=== PATIENT | male | born 1970 | race Caucasian/White ===

== ENCOUNTER 2017-03-29 13:49 | Inpatient (IN) | payer OTHER ==
[~2017-03-29] VITALS: Ht 180.3 cm; Wt 82.6 kg
--- NOTE | 2017-03-29 14:04 | NUR ---
PT IS A 47 VAHID OLD MALE, PRESENTS TO ED VIA [facility] FROM HOME WITH C/O RIGHT UPPER ABDOMINAL PAIN X6 DAYS THAT HAS BEEN CONSTANT AND NON RADIATING. PT AMA'D FROM [facility] YESTERDAY DUE TO NOT BEING HAPPY WITH CARE PER PT. PT REPORTS N/V/D. PT BREHATING IS EVEN AND UNLABORED, NO S/S OF RESPRAITORY DISTRESS. SPEECH IS CLEAR AND APPROPRIATE. PT A/O X4. PTS SCLERA ON BILATERAL EYES ARE YELLOWISH IN COLOR. PT LUNG SOUNDS ARE CLEAR BILATERALLY. PT HOOKED TO FULL CARDIAC ONITOR. PT AWIAITING MSE.
--- NOTE | 2017-03-29 14:17 | NUR ---
DR JOSE AT BEDSIDE FOR MSE
--- NOTE | 2017-03-29 14:39 | NUR ---
LAB AT BEDSIDE.
--- NOTE | 2017-03-29 14:52 | NUR ---
ULTRASOUND AT BEDSIDE TO COMPLETED ORDERED EXAM
[2017-03-29 15:29] LABS: CALCIUM 8.6 mg/dL (8.5-10.1); CARBON DIOXIDE 24.7 mmol/L (21-32); CHLORIDE SERUM 106 mmol/L (98-107); CREATININE SERUM 0.8 mg/dL (0.7-1.3); GFR1 > 60 mL/min; GLUCOSE SERUM 112 mg/dL (74-106); POTASSIUM SERUM 3.9 mmol/L (3.5-5.1); SODIUM SERUM 139 mmol/L (136-145)
[2017-03-29 15:35] LABS: ALBUMIN 3.2 g/dL (3.4-5.0); ALKALINE PHOSPHATASE 141 U/L (46-116); ALT/SGPT 84 U/L (16-63); AST/SGOT 122 U/L (15-37); BILIRUBIN TOTAL 6.42 mg/dL (0.20-1.00); LIPASE 1005 IU/L (73-393); TOTAL PROTEIN, SERUM 8.4 g/dL (6.4-8.2)
[2017-03-29 15:37] LABS: BASOPHIL % 0.1 % (0-2); PLATELET COUNT 164 x10^3mcL (130-400)
[2017-03-29 15:48] LABS: microscopic required? YES
[2017-03-29 15:52] LABS: urine erythrocyte NEGATIVE (NEGATIVE)
[2017-03-29] MEDS ORDERED: LASIX20 MG PO (16:10)
[2017-03-29] MEDS ORDERED: LORAZEPAM0.5 MG PO (16:11)
[2017-03-29] MEDS ORDERED: COL-RITE100 M2 PO (16:11)
[2017-03-29] MEDS ORDERED: GOOD SENSE OMEP20 MG PO (16:11)
--- NOTE | 2017-03-29 17:18 | NUR ---
REPORT CALLED OT MARIETTA RN, SHE WILL ASSUME CARE PRIMARY RN.
[2017-03-29 17:52] VITALS: BP 113/83
--- NOTE | 2017-03-29 18:03 | NUR ---
RECEIVED PT FROM ED VIA [facility]. ORIENTED PT TO ROOM AND SURROUNDINGS. IV NOTED TO LEFT FOOT PATENT AND INTACT. TELE 5 PLACED ON PT READING NSR. INSTRUCTED PT ON THE USE OF CALL LIGHT FOR ASSISTANCE. ENDORSED PT TO PRIMARY NURSE MARIETTA
--- NOTE | 2017-03-29 19:16 | NUR ---
PT SLEEPING. MORPHINE WAS ADMIN FOR ABD PAIN. NS INFUSING 150 CC HOUR. NPO EXCEPT MEDS FOR PANCREATITIS. TELE # 5 NSR. INDEPENDENT W ADL'S. ABD DISTENED AND ROUND. VSS. CALL LIGHT WITHIN REACH.
--- NOTE | 2017-03-29 19:30 | NUR ---
RECEIVED PATIENT FROM AM YA. PATIENT QUIETLY RESTING IN BED AT THIS TIME. IVF INFUSING TO LEFT FOOT AT 150ML/HR NS. CALL LIGHT WITHIN REACH. TELE 5 SR. CURRENTLY ON 2 LITERS NASAL CANNULA. BREATHING EVEN AND UNLABORED.
[2017-03-29 21:19] VITALS: BP 113/75
--- NOTE | 2017-03-29 22:07 | NUR ---
PATIENT NOTED TO BE AGITATED DUE TO PAIN. STATED THAT MORPHINE DOES NOT HELP WITH HIS PAIN AND REQUESTING FOR DILAUDID FOR PAIN MANAGEMENT. DR. JEROME AWARE AND HAS SPOKEN TO PATIENT REGARDING PAIN MANAGEMENT. AWAITING NEW ORDER.S
[2017-03-29 22:34] LABS: MAGNESIUM 1.5 mg/dL (1.8-2.4); PHOSPHOROUS 3.6 mg/dL (2.5-4.9)
[2017-03-29 22:35] LABS: CHOLESTEROL/HDL RATIO 7.2
--- NOTE | 2017-03-29 22:39 | NUR ---
PATIENT REFUSED LACTULOSE REGARDLESS OF EDUCATION OF RISKS AND BENEFITS GIVEN.
[2017-03-29 22:47] LABS: FREE T4 1.76 ng/dL (0.76-1.46); FREE THYROXINE INDEX 3.1 ug/dL (1.4-4.5); T4(THYROXINE) 7.3 ug/dL (4.7-13.3)
--- NOTE | 2017-03-30 02:25 | NUR ---
PATIENT C/O PAIN 04/09 TO ABD. ADMINISTERED PAIN MEDICATION.
[2017-03-30 05:59] VITALS: BP 107/75
--- NOTE | 2017-03-30 06:28 | NUR ---
PATIENT REQUESTING FOR ADDITIONAL OR HIGHER DOSE OF PAIN MEDICATION AND STATES THAT THE CURRENT DOSE OF PAIN MEDICATION DOES NOT RELIEVE HIS PAIN MUCH HE WOULD HOPE. WILL ENDORSE REQUEST TO AM RN. CALL LIGHT WITHIN REACH. IVF CONTINUE TO INFUSE TO LEFT FOOT AT 250ML/HR, NO INFILTRATION NOTED.
[2017-03-30 07:08] LABS: BASOPHIL % 0.6 % (0-2); PLATELET COUNT 132 x10^3mcL (130-400)
--- NOTE | 2017-03-30 07:20 | NUR ---
DROWSY AND ORIENTED. NPO FOR PANCREATITIS AND POSS SURG CONSULT. BREATHING FREELY ON RA. NS INFUSING 250 CC HOUR TO LEFT FOOT. TELE # 5 NSR. INTERMITTENT SHARP/THROBBING PAIN TO RIGHT SIDE ABD. RECEIVED DILAUDID 1 MG 0618 THIS AM. HELPFUL ALTHOUGH PT IS WANTING STRONGER DOSAGE. VSS. INDEPENDENT W ADL'S. JAUNDICED SCLERA, ABD DISTENDED AND FIRM. HYPOACTIVE BOWEL SOUNDS. SAID HE HAD BM YESTERDAY WHAT WAS PARTIALY FORMED AND PARTIALLY WATER. CALL LIGHT WITHIN REACH.
[2017-03-30 07:23] LABS: RED CELL DISTRIBUTION WIDTH 14.6 % (11.5-14.5)
[2017-03-30 07:24] LABS: rbc morphology (normal/abnorm) ABNORMAL (NORMAL)
[2017-03-30 08:34] LABS: T3 TOTAL 0.87 ng/mL
[2017-03-30 09:25] VITALS: BP 121/81
[2017-03-30 09:38] LABS: AMPHETAMINE QUAL UR NONE DETECTED (NEG <=1000)
--- NOTE | 2017-03-30 13:55 | NUR ---
PT LEFT FOR CT ABD.
[2017-03-30 14:24] VITALS: BP 124/82
[2017-03-30 17:35] VITALS: BP 114/72
--- NOTE | 2017-03-30 18:48 | NUR ---
DROWSY AND ORIENTED. MEDICATED FOR ABD PAIN. CONTINUES TO BE NPO OR PANCREATITIS. SEEN BY DR. MOORE AND DR. Nat BRITO. NOT A GOOD SURGICAL CANDIDATE AT THIS TIME. MIGHT CONSIDER ERCP IF NECCESSARY PER Og BRITO. CONTINUES ON ROCEPHIN IV ABX. LR INFUSING [address] Lavelle BRITO REDUCED DOSAGE OF DILAUDID AND INCREASED TIME FROM Q 3 HOURS TO 6 HOURS PRN. PT IS NOT HAPPY ABOUT THAT. FEDER[place] # [phone]. HIDA SCAN ORDERED FOR TOMORROW. CT ABD PERFORMED TODAY.
--- NOTE | 2017-03-30 19:14 | NUR ---
REC'D PT FROM DAY NURSE. ALERT AND DROWSY. DENIES PAIN AT THIS TIME. NO ACUTE DISTRESS NOTED. TELE #5 SR. LUNG SOUNDS ARE CTA. NO SOB. BREATHING EVEN AND UNLABORED. NO EDEMA NOTED. IV INTACT AND PATENT INFUSING TO R FOOT 125 ML/HR. BED IN LOWEST POSITION. FAMILY AT BEDSIDE. CALL LIGHT WITHIN REACH. WILL PROCEED TO THE PLAN OF CARE.
--- NOTE | 2017-03-30 20:13 | NUR ---
DR JEROME IN THE ROOM SPEAKING TO THE Pt.
[2017-03-30 20:19] VITALS: BP 115/50
--- NOTE | 2017-03-30 20:30 | NUR ---
PT C/O OF PAIN 03/09. WILL MEDICATE PER EMAR.
[2017-03-30 21:37] VITALS: BP 109/81
--- NOTE | 2017-03-30 23:23 | NUR ---
FOUND Pt ROAMING AROUND THE UNIT. WALKED THE Pt BACK TO THE ROOM. Pt STATED THAT HE IS IN SEVERE PAIN TO HIS ABD AND BACK. DR JEROME MADE AWARE.
--- NOTE | 2017-03-31 00:22 | NUR ---
Pt IS CURRENTLY ASLEEP. NO ACUTE DISTRESS NOTED. BREATHING EVEN AND UNLABORED. IV INTACT AND PATENT. WILL CONT TO MONITOR.
--- NOTE | 2017-03-31 04:51 | NUR ---
ROUNDS MADE. PT IS ASLEEP. NO ACUTE DISTRESS NOTED. BREATH SOUNDS ARE EVEN AND UNLABORED. IV INTACT AND PATENT. WILL CONT TO MONITOR.
--- NOTE | 2017-03-31 05:34 | NUR ---
PT IS C/O OF SEVERE PAIN AND WANTS TO TALK TO THE DR. DR JEROME MADE AWARE.
[2017-03-31 06:07] VITALS: BP 119/62
--- NOTE | 2017-03-31 06:26 | NUR ---
PT SLEPT PERIODICALLY THROUGHOUT THE SHIFT. NO ACUTE DISTRESS OR SIGNIFICANT CHANGES NOTED. MEDICATED PER EMAR. ALL NEEDS MET AND ATTENDED TO. IV INTACT AND PATENT INFUSING WELL. WILL ENDORSE ALL CONTINUITY CARE TO ONCOMING NURSE.
[2017-03-31 06:44] LABS: BASOPHIL % 0.7 % (0-2)
[2017-03-31 06:45] LABS: PLATELET COUNT 128 x10^3mcL (130-400); RED CELL DISTRIBUTION WIDTH 14.6 % (11.5-14.5); rbc morphology (normal/abnorm) ABNORMAL (NORMAL)
[2017-03-31 06:56] LABS: BILIRUBIN DIRECT 3.5 mg/dL (0.0-0.2); BILIRUBIN TOTAL 5.21 mg/dL (0.20-1.00)
--- NOTE | 2017-03-31 07:30 | NUR ---
RECEIVED PATEINT WAS SLEEPING. BREATHING ON EVEN PATTEN. IVF OF NS 125CC/HR INFUSING WELL TO RT FOOT. TELE#5 = SR; HR = 75. CALL LIGHT IN REACH.
[2017-03-31 07:46] LABS: ALBUMIN 2.9 g/dL (3.4-5.0)
--- NOTE | 2017-03-31 08:00 | NUR ---
PATIENT SLEEPING. NPO. IVF INFUSING WELL. CALL LIGHT IN REACH.
--- NOTE | 2017-03-31 09:15 | NUR ---
DR. CLEMENTE AND MEDICAL TEAM MADE MORNING ROUND. PATIENT ALERT/ORIENTED X3. AMBULATORY. C/O ABD PAIN ON 05/09. ABD ROUND/SOFT. BOWEL SOUND HYPOACTIVE. NO TENDERNESS. GENERAL JUANDISE (+). NPO PER ORDER. DILAUDID 1.5MG IVP GIVEN. CONTINUE MONITOR.
[2017-03-31 09:35] VITALS: BP 107/71
--- NOTE | 2017-03-31 11:40 | NUR ---
DR. Lavelle BRITO SAW PATIENT. ORDER OF LACTULOSE 30CC PO GIVEN.
--- NOTE | 2017-03-31 12:25 | NUR ---
Notified by Design Printing Machine Set Up Operator that patient called and requested to talk to the Director. Went to patient room to discuss if he has any issues or concerns and he said that he wants to bring up what happenned to him last night. Noticed that patient is slow to answer and lethargic. Patient complained about last night staff who did not assist him when he called. When asked patient more detailed he was unable to provide clear information regarding time when happenned or the length of time he called the staff. He said that he pushed the button on the left side of bed, and on the right side and because nobody came, he kept his hand on the call light waiting for somebody to come and assist him. Per nurses notes the complaint was related to pain and patient's request for more pain medication. Discussed with patient about the outcome of the new pain medication regimen (dose increased and interval between doses decreased) and after a periond of dozing off he said "I don't know"...and when asked if he is more comfortable he said "Yes, this is the word". Noticed that during conversation he barely maintained eye contact with me and he was continuosly dozing off and very slow to answer. Noticed head of bed elevated, patient sitting in bed and his head dropping from side to side. Provided patient with another pillow and educated him to call nurse or charge nurse if have any needs, issues or concerns. Call light education provided to patient. Will reinforce safety and will continue to monitor patient. Attending nurse Rhonda made aware to continue to maintain safety and monitor patient. Madhuri Bai [facility] Director made aware about the above.
[2017-03-31 13:35] VITALS: BP 116/86
--- NOTE | 2017-03-31 14:30 | NUR ---
WENT TO [place] FOR HIDA SCAN.
--- NOTE | 2017-03-31 16:15 | NUR ---
HIDA SCAN DONE. PATIENT C/O ABD PAIN ON 05/09; DILAUDID 1.5MG IVP GIVEN. CONTINUE MONITOR.
[2017-03-31 17:49] VITALS: BP 115/82
--- NOTE | 2017-03-31 18:43 | NUR ---
CONTINUED NPO PER ORDER. SLEEPING NOW. IVF OF LR 125CC/HR. INDORSED CARE TO NOC NURSE.
--- NOTE | 2017-03-31 20:00 | NUR ---
PT IS AWAKE AND ORIENTED X4. PT DENIES BANGURA OR DIZZINESS AT THIS TIME. PT ISC LESLIE AND COOPERATIVE WITH NURSING CARE. PT ON TELE#5 SHOWING NSR ON THE MONITOR. PT DENIES CHEST PAIN OR PRESSURE. PT HAS PALPABLE PULSES BILAT ALL EXTREMITIES. NO SINS OF EDEMA. SCDS IN PLACE. PT HAS CLEAR LUNG SOUNDS. RESPIRATIONS EVEN AND UNLABORED ON ROOM AIR. PT DENIES SOB. PT REPORTS ABD PAIN, AND IS MANAGED WITH PRN DILAUDID IVP. PT ON SCHED LACTULOSE. PT VOIDS FREELY ON OWN. PT IS AMBULATORY WITH STEADY GAIT. PT EYES NOTED TO BE YELLOW AT THIS TIME. IV FLUIDS LR RUNNING AT 125 ML/HR TO RIGHT FOOT. PT STATES PAIN IS TOLERABLE AT THIS TIME. NO SIGNS OF DISTRESS. WILL CONTINUE TO MONITOR.
[2017-03-31 21:15] VITALS: BP 122/83
--- NOTE | 2017-03-31 21:15 | NUR ---
PT C/O ABD PAIN AND RECEIVED PRN DILAUDID AT THIS TIME. WILL CONTINUE TO MONITOR.
--- NOTE | 2017-03-31 22:28 | NUR ---
PT REMAINS IN BED AT THIS TIEM SLEEPING. NO SIGNS OF DISTRESS. WILL CONTINUE TO MONITOR.
--- NOTE | 2017-04-01 01:03 | NUR ---
PT C/O 8/10 ABD PAIN. PRN PAIN MEDICATIONS GIVEN ORDERED. WILL CONTINUE TO MONITOR.
--- NOTE | 2017-04-01 04:12 | NUR ---
PT C/O 10/10 ABD PAIN AND RECEIVED PRN DILAUDID, GIVEN ORDERED. WILL CONTINUE TO MONITOR.
[2017-04-01 05:31] VITALS: BP 107/73
--- NOTE | 2017-04-01 06:43 | NUR ---
PT IS AWAKE AND OREINTED X4. PT DENIES BANGURA OR DIZZINESS AT THIS TIME. PT DENIES CHEST PAIN OR PRESSURE. PT DENIES SOB. RESPIRATIONS EVEN AND UNLABORED ON ROOM AIR. PT REPORTS ABD PAIN AND PRN MEDICATIONS WILL BE GIVEN ORDERED. NO SIGNS OF DISTRESS. WILL ENDORSE TO DAY NURSE.
--- NOTE | 2017-04-01 07:45 | NUR ---
RECEIVED PT IN BED, SLEEPING, AROUSABLE BUT DROWSY. DENIES PAIN THIS TIME. ASSESSED AND DOCUMENTED. SAFTEY PRECAUTIONS ON. WILL MONITOR.
--- NOTE | 2017-04-01 08:00 | NUR ---
AND RESIDENTS DID ROUNDS. EXPLAINED THE PLAN OF CARE AND ANSWERED ALL PT'S QUESTIONS.
[2017-04-01 08:42] LABS: BASOPHIL % 0.5 % (0-2); PLATELET COUNT 136 x10^3mcL (130-400)
[2017-04-01 08:45] LABS: RED CELL DISTRIBUTION WIDTH 14.7 % (11.5-14.5)
[2017-04-01 08:47] LABS: rbc morphology (normal/abnorm) ABNORMAL (NORMAL)
[2017-04-01 09:04] LABS: AMYLASE 65 U/L (25-115); CALCIUM 8.8 mg/dL (8.5-10.1); CARBON DIOXIDE 26.3 mmol/L (21-32); CHLORIDE SERUM 106 mmol/L (98-107); CREATININE SERUM 0.5 mg/dL (0.7-1.3); GFR1 > 60 mL/min; GLUCOSE SERUM 89 mg/dL (74-106); LIPASE 591 IU/L (73-393); MAGNESIUM 1.5 mg/dL (1.8-2.4); PHOSPHOROUS 3.3 mg/dL (2.5-4.9); POTASSIUM SERUM 4.1 mmol/L (3.5-5.1); SODIUM SERUM 139 mmol/L (136-145)
[2017-04-01 10:09] VITALS: BP 125/71
--- NOTE | 2017-04-01 11:00 | NUR ---
INFORMED ABOUT PT SAID HE STILL IN PAIN, NORCO DID NOT WORK AND HE WANTS TO TALK TO THE DOCTOR. CAME AND SPOKE WITH PT. PT VERBALISE UNDERSTANDS. NO NEW ORDER FOR PAIN SEEN. GAVE COMFORTABLE POSITION.
[2017-04-01 12:52] VITALS: Ht 180.3 cm; Wt 82.6 kg
--- NOTE | 2017-04-01 13:00 | NUR ---
PT RESTING IN BED COMFORTABLY. DENIES PAIN THIS TIME. HE SAID HE WANTS TO GO HOME. SAID SHE WILL DISCHARGE PT.
[2017-04-01 14:13] VITALS: BP 125/71
[2017-04-01] MEDS ORDERED: NOR10T PO (14:26)
--- NOTE | 2017-04-01 14:50 | NUR ---
DISCHARGE INSTRUCTIONS AND PRESCRIPTION GIVEN. PB SIGNED AND SENT WITH PT. IV REMOVED AND DRESSING APPLIED. DENIES PAIN THIS TIME. PT IS STABLE. RETAIL EQUIPMENT ASSOCIATE WHEELED PT DOWN TO LOBBY ACCOMPANIED WITH FAMILY. PT DC HOME.
== END 2017-04-01 15:12 | disposition home or self-care (01) | DRG 282 ==
LOC: ED 13:49 → DU 16:46 → MU 04-01 06:51
PROVIDERS: Emergency Medicine; Internal Medicine Gastroenterology; ADMIT Family Medicine
DX: K85.90 Acute pancreatitis without necrosis or infection, unspecified (principal); K72.00 Acute and subacute hepatic failure without coma; N17.0 Acute kidney failure with tubular necrosis; B18.2 Chronic viral hepatitis C; K70.30 Alcoholic cirrhosis of liver without ascites; E44.1 Mild protein-calorie malnutrition; N39.0 Urinary tract infection, site not specified; I10 Essential (primary) hypertension; K80.20 Calculus of gallbladder without cholecystitis without obstruction; D53.9 Nutritional anemia, unspecified; E83.42 Hypomagnesemia; E66.3 Overweight; Z68.25 Body mass index [BMI] 25.0-25.9, adult; F17.210 Nicotine dependence, cigarettes, uncomplicated
CPT/HCPCS: 78226; 83880; 84439; A9537; J0696; J1170; J2270; J3010; J3475; J7030; J7120; Q0092

== ENCOUNTER 2017-05-04 00:46 | Emergency (ER) | payer OTHER ==
[~2017-05-04] VITALS: Ht 175.3 cm; Wt 83.9 kg
[~2017-05-04 00:46] MED LIST: COL-RITE100 M2 PO; GOOD SENSE OMEP20 MG PO; LASIX20 MG PO; LORAZEPAM0.5 MG PO; NOR10T PO
[2017-05-04 01:27] LABS: BASOPHIL % 0.3 % (0-2)
[2017-05-04 01:28] LABS: PLATELET COUNT 126 x10^3mcL (130-400); RED CELL DISTRIBUTION WIDTH 16.3 % (11.5-14.5)
[2017-05-04 01:35] LABS: CALCIUM 8.8 mg/dL (8.5-10.1); CARBON DIOXIDE 27.6 mmol/L (21-32); CHLORIDE SERUM 105 mmol/L (98-107); CREATININE SERUM 0.6 mg/dL (0.7-1.3); GFR1 > 60 mL/min; GLUCOSE SERUM 110 mg/dL (74-106); SODIUM SERUM 138 mmol/L (136-145)
[2017-05-04 01:39] LABS: ALKALINE PHOSPHATASE 132 U/L (46-116); ALT/SGPT 47 U/L (16-63); AMYLASE 74 U/L (25-115); AST/SGOT 78 U/L (15-37); BILIRUBIN TOTAL 4.26 mg/dL (0.20-1.00); LIPASE 284 IU/L (73-393)
[2017-05-04 01:41] LABS: ALBUMIN 2.9 g/dL (3.4-5.0)
[2017-05-04 03:36] VITALS: BP 130/69
== END 2017-05-04 03:36 | disposition home or self-care (01) ==
LOC: ED 00:46
PROVIDERS: Emergency Medicine
DX: R10.13 Epigastric pain (principal)
CPT/HCPCS: 83880; G0480; J2270; J2405; J3010; J7030; Q0092; Q0162

== ENCOUNTER 2017-05-09 12:45 | Emergency (ER) | payer OTHER ==
[~2017-05-09] VITALS: Ht 180.3 cm; Wt 84.4 kg
[2017-05-09 16:36] LABS: BASOPHIL % 0.5 % (0-2); PLATELET COUNT 150 x10^3mcL (130-400)
[2017-05-09 16:37] LABS: RED CELL DISTRIBUTION WIDTH 16.3 % (11.5-14.5)
[2017-05-09 17:33] LABS: CALCIUM 8.6 mg/dL (8.5-10.1); CARBON DIOXIDE 25.3 mmol/L (21-32); CHLORIDE SERUM 103 mmol/L (98-107); CREATININE SERUM 0.8 mg/dL (0.7-1.3); GFR1 > 60 mL/min; GLUCOSE SERUM 95 mg/dL (74-106); SODIUM SERUM 137 mmol/L (136-145)
[2017-05-09 17:39] LABS: ALKALINE PHOSPHATASE 138 U/L (46-116); ALT/SGPT 55 U/L (16-63); AMYLASE 81 U/L (25-115); AST/SGOT 80 U/L (15-37); BILIRUBIN TOTAL 3.79 mg/dL (0.20-1.00); LIPASE 305 IU/L (73-393)
[2017-05-09 17:42] LABS: TOTAL PROTEIN, SERUM 8.5 g/dL (6.4-8.2)
[2017-05-09 18:13] VITALS: BP 137/70
== END 2017-05-09 18:13 | disposition home or self-care (01) ==
LOC: ED 12:45
PROVIDERS: Emergency Medicine
DX: K80.50 Calculus of bile duct without cholangitis or cholecystitis without obstruction (principal); K74.60 Unspecified cirrhosis of liver; I10 Essential (primary) hypertension
CPT/HCPCS: 36415; 83880; J0780; J1200; J3010

== ENCOUNTER 2017-05-16 19:34 | Inpatient (IN) | payer OTHER ==
[~2017-05-16] VITALS: Ht 180.3 cm; Wt 88.0 kg
[2017-05-16 21:49] LABS: BASOPHIL % 0.5 % (0-2); PLATELET COUNT 147 x10^3mcL (130-400)
[2017-05-16 21:59] LABS: UA SPECIFIC GRAVITY 1.015 (1.005-1.035); urine erythrocyte NEGATIVE (NEGATIVE)
[2017-05-16 21:59] LABS: RED CELL DISTRIBUTION WIDTH 17.2 % (11.5-14.5)
[2017-05-16 22:05] LABS: microscopic required? YES
[2017-05-16 22:13] LABS: CALCIUM 8.2 mg/dL (8.5-10.1); CARBON DIOXIDE 26.3 mmol/L (21-32); CHLORIDE SERUM 103 mmol/L (98-107); CREATININE SERUM 0.8 mg/dL (0.7-1.3); GFR1 > 60 mL/min; GLUCOSE SERUM 97 mg/dL (74-106); POTASSIUM SERUM 3.7 mmol/L (3.5-5.1); SODIUM SERUM 134 mmol/L (136-145)
[2017-05-16 22:18] LABS: ALBUMIN 2.6 g/dL (3.4-5.0); ALKALINE PHOSPHATASE 123 U/L (46-116); ALT/SGPT 48 U/L (16-63); AST/SGOT 64 U/L (15-37); BILIRUBIN TOTAL 2.4 mg/dL (0.20-1.00); C REACTIVE PROTEIN 0.6 mg/dL (<=0.9); TOTAL PROTEIN, SERUM 6.9 g/dL (6.4-8.2)
[2017-05-16 22:19] LABS: CK-MB < 0.5 ng/mL (0-3.6); CREATINE KINASE 27 U/L (39-308)
[2017-05-16 22:41] LABS: T3 TOTAL 0.94 ng/mL
[2017-05-16 22:54] LABS: FREE T4 1.58 ng/dL (0.76-1.46); FREE THYROXINE INDEX 2.9 ug/dL (1.4-4.5); T4(THYROXINE) 7.5 ug/dL (4.7-13.3)
[2017-05-16] MEDS ORDERED: FLA500 PO (22:54)
[2017-05-16] MEDS ORDERED: OXYCODONE PO (22:55)
[2017-05-16] MEDS ORDERED: CIPRO500 MG PO (22:55)
[2017-05-16 23:18] LABS: ERYTHROCYTE SED RATE 11 mm/hr (0-15)
[2017-05-16 23:43] VITALS: BP 142/93
[2017-05-16 23:46] VITALS: Ht 180.3 cm; Wt 88.0 kg
[2017-05-17 01:34] LABS: IRON 97 ug/dL (65-170)
[2017-05-17 01:40] LABS: AMPHETAMINE QUAL UR NONE DETECTED (NEG <=1000); TOTAL IRON BINDING CAPACITY 177 ug/dL (250-450)
[2017-05-17 06:32] VITALS: BP 115/65
[2017-05-17 06:52] LABS: CALCIUM 8.2 mg/dL (8.5-10.1); CARBON DIOXIDE 25.6 mmol/L (21-32); CHLORIDE SERUM 104 mmol/L (98-107); CREATININE SERUM 0.8 mg/dL (0.7-1.3); GFR1 > 60 mL/min; GLUCOSE SERUM 83 mg/dL (74-106); MAGNESIUM 1.6 mg/dL (1.8-2.4); PHOSPHOROUS 3.9 mg/dL (2.5-4.9); POTASSIUM SERUM 3.8 mmol/L (3.5-5.1); SODIUM SERUM 137 mmol/L (136-145)
[2017-05-17 06:55] LABS: BASOPHIL % 0.3 % (0-2); PLATELET COUNT 143 x10^3mcL (130-400); RED CELL DISTRIBUTION WIDTH 16.9 % (11.5-14.5)
[2017-05-17 07:17] LABS: RED BLOOD CELLS 3.05 M/mm3 (4.52-5.90)
[2017-05-17 07:35] VITALS: BP 127/83
[2017-05-17 12:44] VITALS: BP 115/77
[2017-05-17 17:24] VITALS: BP 120/74
[2017-05-17 21:46] VITALS: BP 116/84
[2017-05-18] VITALS (7 sets, daily range): BP systolic 116–137; BP diastolic 79–96
[2017-05-18 06:50] LABS: BASOPHIL % 0.5 % (0-2); PLATELET COUNT 131 x10^3mcL (130-400)
[2017-05-18 06:53] LABS: RED CELL DISTRIBUTION WIDTH 17.4 % (11.5-14.5)
[2017-05-18 07:42] LABS: CALCIUM 8.2 mg/dL (8.5-10.1); CARBON DIOXIDE 24.2 mmol/L (21-32); CHLORIDE SERUM 107 mmol/L (98-107); CREATININE SERUM 0.8 mg/dL (0.7-1.3); GFR1 > 60 mL/min; GLUCOSE SERUM 94 mg/dL (74-106); MAGNESIUM 1.7 mg/dL (1.8-2.4); PHOSPHOROUS 3.8 mg/dL (2.5-4.9); POTASSIUM SERUM 3.7 mmol/L (3.5-5.1); SODIUM SERUM 137 mmol/L (136-145)
[2017-05-19 06:05] VITALS: BP 114/86
[2017-05-19 06:47] LABS: BASOPHIL % 0.1 % (0-2)
[2017-05-19 06:57] LABS: CALCIUM 8.6 mg/dL (8.5-10.1); CARBON DIOXIDE 23.9 mmol/L (21-32); CHLORIDE SERUM 104 mmol/L (98-107); CREATININE SERUM 0.7 mg/dL (0.7-1.3); GFR1 > 60 mL/min; GLUCOSE SERUM 121 mg/dL (74-106); MAGNESIUM 1.8 mg/dL (1.8-2.4); PHOSPHOROUS 3.3 mg/dL (2.5-4.9); POTASSIUM SERUM 4.5 mmol/L (3.5-5.1); SODIUM SERUM 134 mmol/L (136-145)
[2017-05-19 07:14] LABS: PLATELET COUNT 122 x10^3mcL (130-400); RED CELL DISTRIBUTION WIDTH 17.1 % (11.5-14.5)
[2017-05-19 08:32] LABS: BILIRUBIN DIRECT 1.48 mg/dL (0.0-0.2); BILIRUBIN TOTAL 2.2 mg/dL (0.20-1.00); TOTAL PROTEIN, SERUM 6.5 g/dL (6.4-8.2)
[2017-05-19 08:36] LABS: ALBUMIN 2.3 g/dL (3.4-5.0)
[2017-05-19 09:28] VITALS: BP 131/95
[2017-05-19] MEDS ORDERED: PERCOCET1 TA5 PO ×2 (10:09→10:22)
[2017-05-19] MEDS ORDERED: LEVAQUIN750 MG PO ×2 (10:11→10:21)
[2017-05-19] MEDS ORDERED: FLA500 PO ×2 (10:14→10:22)
[2017-05-19] MEDS ORDERED: COL100 PO (10:16)
[2017-05-19] MEDS ORDERED: LAC PO (10:16)
[2017-05-19] MEDS ORDERED: IBUPROFEN400 MG PO (10:35)
[2017-05-19 11:05] VITALS: BP 131/95
== END 2017-05-19 12:00 | disposition home or self-care (01) | DRG 264 ==
LOC: ED 19:34 → EDBD 22:28 → DU 22:28 → MU 05-19 09:30
PROVIDERS: Family Medicine Sports Medicine; Specialist; Surgery; ADMIT Family Medicine
PROC: 0WJP4ZZ Inspection of Gastrointestinal Tract, Percutaneous Endoscopic Approach (ICD-10-PCS; principal; 2017-05-18 08:00)
DX: K80.00 Calculus of gallbladder with acute cholecystitis without obstruction (principal); E43 Unspecified severe protein-calorie malnutrition; D68.9 Coagulation defect, unspecified; K70.31 Alcoholic cirrhosis of liver with ascites; E87.1 Hypo-osmolality and hyponatremia; B18.2 Chronic viral hepatitis C; I10 Essential (primary) hypertension; D53.9 Nutritional anemia, unspecified; Z68.27 Body mass index [BMI] 27.0-27.9, adult; F17.210 Nicotine dependence, cigarettes, uncomplicated
CPT/HCPCS: 83880; 84439; 94150; J0690; J1170; J1885; J1956; J2405; J2543; J3010; J3475; J3490; J7030; Q0092; Q9967

== ENCOUNTER 2017-05-20 15:26 | Emergency (ER) | payer OTHER ==
[~2017-05-20] VITALS: Ht 172.7 cm; Wt 94.3 kg
[~2017-05-20 15:26] MED LIST changes: +CIPRO500 MG PO; +COL100 PO; +FLA500 PO; +IBUPROFEN400 MG PO; +LAC PO; +LEVAQUIN750 MG PO; +OXYCODONE PO; +PERCOCET1 TA5 PO
[2017-05-20 19:15] VITALS: BP 128/57
== END 2017-05-20 19:10 | disposition home or self-care (01) ==
LOC: ED 15:26
DX: T81.31XA Disruption of external operation (surgical) wound, not elsewhere classified, initial encounter (principal); I10 Essential (primary) hypertension; Z87.19 Personal history of other diseases of the digestive system

== ENCOUNTER 2017-05-23 23:07 | Emergency (ER) | payer OTHER ==
[2017-05-23 23:50] LABS: BASOPHIL % 0.3 % (0-2); PLATELET COUNT 138 x10^3mcL (130-400)
[2017-05-23 23:52] LABS: RED CELL DISTRIBUTION WIDTH 17.4 % (11.5-14.5)
[2017-05-24 00:02] LABS: CALCIUM 7.9 mg/dL (8.5-10.1); CARBON DIOXIDE 29.2 mmol/L (21-32); CHLORIDE SERUM 106 mmol/L (98-107); CREATININE SERUM 0.7 mg/dL (0.7-1.3); GFR1 > 60 mL/min; GLUCOSE SERUM 110 mg/dL (74-106); POTASSIUM SERUM 3.8 mmol/L (3.5-5.1); SODIUM SERUM 138 mmol/L (136-145)
[2017-05-24 00:06] LABS: ALKALINE PHOSPHATASE 114 U/L (46-116); ALT/SGPT 39 U/L (16-63); AMYLASE 61 U/L (25-115); AST/SGOT 56 U/L (15-37); BILIRUBIN TOTAL 2.5 mg/dL (0.20-1.00); LIPASE 222 IU/L (73-393); TOTAL PROTEIN, SERUM 6.4 g/dL (6.4-8.2)
[2017-05-24 00:07] LABS: ALBUMIN 2.2 g/dL (3.4-5.0)
[2017-05-24 01:54] VITALS: BP 140/90
== END 2017-05-24 01:54 | disposition home or self-care (01) ==
LOC: ED 23:07
PROVIDERS: Emergency Medicine
DX: K74.60 Unspecified cirrhosis of liver (principal); I10 Essential (primary) hypertension
CPT/HCPCS: 83880; J0780; J1200; J1885; J3010

== ENCOUNTER 2017-06-05 17:48 | Emergency (ER) | payer OTHER | END 2017-06-05 18:20 | disposition left against medical advice (07) | LOC: ED 17:48 | DX: Z53.21 Procedure and treatment not carried out due to patient leaving prior to being seen by health care provider (principal) ==

== ENCOUNTER 2017-06-06 14:43 | Emergency (ER) | payer OTHER ==
[~2017-06-06] VITALS: Ht 180.3 cm; Wt 85.3 kg
[2017-06-06 19:18] LABS: CALCIUM 8.1 mg/dL (8.5-10.1); CARBON DIOXIDE 25.5 mmol/L (21-32); CHLORIDE SERUM 103 mmol/L (98-107); CREATININE SERUM 0.7 mg/dL (0.7-1.3); GFR1 > 60 mL/min; GLUCOSE SERUM 89 mg/dL (74-106); SODIUM SERUM 136 mmol/L (136-145)
[2017-06-06 19:19] LABS: PLATELET COUNT 120 x10^3mcL (130-400); RED CELL DISTRIBUTION WIDTH 16.1 % (11.5-14.5)
[2017-06-06 19:23] LABS: ALKALINE PHOSPHATASE 142 U/L (46-116); ALT/SGPT 64 U/L (16-63); AMYLASE 62 U/L (25-115); AST/SGOT 90 U/L (15-37); BILIRUBIN TOTAL 2.5 mg/dL (0.20-1.00); LIPASE 154 IU/L (73-393); TOTAL PROTEIN, SERUM 7.2 g/dL (6.4-8.2)
[2017-06-06 19:24] LABS: ALBUMIN 2.3 g/dL (3.4-5.0)
[2017-06-06 21:18] VITALS: BP 123/83
== END 2017-06-06 21:18 | disposition home or self-care (01) ==
LOC: ED 14:43
PROVIDERS: Emergency Medicine
DX: R10.11 Right upper quadrant pain (principal); I10 Essential (primary) hypertension
CPT/HCPCS: 83880; J1170; J2405